=== PATIENT | female | born 1990 | race Two or more races ===

== ENCOUNTER 2021-07-21 12:32 | Emergency (ER) | payer MEDICAID, OTHER ==
[~2021-07-21] VITALS: Ht 162.6 cm; Wt 99.8 kg
[2021-07-21 13:43] VITALS: BP 137/89
[2021-07-21] MEDS ORDERED: ACETAMINOPHEN 500 MG TAB PO ONE (14:00)
[2021-07-21] MEDS ORDERED: AZIT500T66 PO (14:34)
[2021-07-21] MEDS ORDERED: IBUP800T27 PO (14:34)
== END 2021-07-21 15:21 | disposition home or self-care (01) ==
LOC: ER 12:32
DX: U07.1 COVID-19 (principal); R50.9 Fever, unspecified; M79.10 Myalgia, unspecified site
CPT/HCPCS: 71046

== ENCOUNTER 2023-07-16 21:05 | Emergency (ER) | payer MEDICAID ==
[~2023-07-16] VITALS: Ht 162.6 cm; Wt 95.3 kg
[~2023-07-16 21:05] MED LIST: AZIT500T66 PO; IBUP-1456 PO
[2023-07-16 22:46] LABS: Basophils # (auto) 0.1 10 ^3/uL (0-0.2); Basophils % (auto) 0.7 % (0.0-2.0); Eosinophils # (auto) 0.1 10 ^3/uL (0-0.8); Eosinophils % (auto) 0.8 % (0.0-7.0); Hematocrit 43.6 % (36.0-46.0); Hemoglobin 14.5 g/dL (12.2-16.2); Lymphocytes % (auto) 19.3 % (10.0-50.0); Mean Corpuscular Hemoglobin 29.9 pg (28.0-32.0); Mean Corpuscular Hgb Conc. 33.2 g/dL (32.0-36.0); Mean Corpuscular Volume 90.1 fL (80.0-100.0); Monocytes # (auto) 0.4 10 ^3/uL (0-1.3); Neutrophils # (auto) 7.7 10 ^3/uL (1.6-8.6); Neutrophils % (auto) 75.2 % (37.0-80.0); Red Blood Cells 4.84 10^6/uL (4.0-5.20); White Blood Cell 10.2 10^3/uL (4.4-10.8)
[2023-07-16 23:07] LABS: Alanine Aminotransferase 20 U/L (7-40); Albumin 4.7 g/dL (3.2-4.8); Alkaline Phosphatase 77 U/L (46-116); Anion Gap 8 (5-15); Blood Urea Nitrogen 7 mg/dL (9-23); Calcium 9.1 mg/dL (8.7-10.4); Carbon Dioxide 23 mmol/L (20-30); Chloride 107 mmol/L (98-107); Glucose 121 mg/dL (74-106); Potassium 3.3 mmol/L (3.5-5.1); Sodium 138 mmol/L (136-145)
[2023-07-16 23:08] LABS: Aspartate Aminotransferase 15 U/L (13-40); Bilirubin, Total 0.4 mg/dL (0.2-1.0); Total Protein 7.5 g/dL (5.7-8.2)
[2023-07-16 23:43] LABS: Urine Bacteria FEW /hpf (None Seen); Urine Blood 1+ /uL (Negative); Urine Clarity Clear (Clear); Urine Color Colorless (Yellow); Urine Mucus FEW (None Seen); Urine Protein, UAD Negative (Negative); Urine Specific Gravity 1.019 (1.001-1.035); Urine Urobilinogen Normal (Negative); Urine WBC 1 /hpf (0 - 5)
[2023-07-16 23:59] VITALS: BP 117/72; PULSE 89; RESP 20; TEMP 98.3; O2SAT 95
== END 2023-07-16 23:59 | disposition home or self-care (01) ==
LOC: ER 21:05
DX: N93.8 Other specified abnormal uterine and vaginal bleeding (principal); R10.2 Pelvic and perineal pain; Z32.02 Encounter for pregnancy test, result negative
CPT/HCPCS: 36415; 80053; 81001; 84702; 85025

== ENCOUNTER 2025-05-21 07:36 | Inpatient (IN) | payer MEDICAID ==
[~2025-05-21] VITALS: Ht 162.6 cm; Wt 98.9 kg
--- NOTE | 2025-05-21 08:24 | ED.PDOC ---
History of Present Illness HPI Comments A 34 YEAR OLD FEMALE PRESENTS TO THE ED WITH COMPLAINT OF FLU-LIKE SYMPTOMS. PATIENT REPORTS THAT SHE HAS BEEN EXPERIENCING DIZZINESS WITH ASSOCIATED DEHYDRATION, NAUSEA, VOMITING, FATIGUE, AND UTI SYMPTOMS FOR THE PAST MONTH. PER PT, SHE POSSIBLE DM. PATIENT DENIES FEVER, CHILLS, SHORTNESS OF BREATH, CHEST PAIN, ABDOMINAL PAIN, COUGH, SORE THROAT, HEADACHE, OR OTHER COMPLAINTS. NO OTHER SYMPTOMS OR MODIFYING FACTORS AT THIS TIME. PATIENT IS ALERT, ORIENTED X 4, AND HAS STEADY GAIT. Chief Complaint: Flu like Time Seen by MD: 08:23 Primary Care Provider: LIBAN Reviewed Notes: Nurses Notes, Medications, Allergies Allergies: Coded Allergies: NO KNOWN ALLERGIES (Unverified , 07/21/21) Home Meds Active Scripts Ibuprofen (Ibuprofen) 800 Mg Tab, 800 MG PO Q8HP PRN for 8 Days, #24 TAB Prov:LIANNA OSORIO 07/21/21 Azithromycin (Azithromycin) 500 Mg Tab, 500 MG PO DAILY for 5 Days, #5 TAB Prov:LIANNA OSORIO 07/21/21 Information Source: Patient Mode of Arrival: Ambulatory Severity: Moderate Timing: Months Duration: Since onset Prehospital treatment: None Medication Refill: For: Other (NAUSEA, VOMITING, FATIGUE AND UTI SYMPTOMS ) Past Medical History PAST MEDICAL HISTORY: Denies Surgical History: Denies all surgeries PHARMACY CASHIER History: Ovarian Cysts Family History Family History: Reviewed,noncontributory to illness Social History Smoker: Non-Smoker Alcohol: Denies ETOH Use Drugs: Denies Drug Use Lives In: Home Constitutional: reports: fatigue, others (ANXIOUS ); denies: chills, diaphoresis, fever, malaise, sweats, weakness EENTM: denies: blurred vision, double vision, ear bleeding, ear discharge, ear drainage, ear pain, ear ringing, eye pain, eye redness, hearing loss, mouth pain, mouth swelling, nasal discharge, nose bleeding, nose congestion, nose pain, photophobia, tearing, throat pain, throat swelling, voice changes, others Respiratory: denies: cough, hemoptysis, orthopnea, SOB at rest, shortness of breath, SOB with excertion, stridor, wheezing, others Cardiovascular: reports: others (TACHYCARDIA); denies: chest pain, dizzy spells, diaphoresis, Dyspnea on exertion, edema, irregular heart beat, left arm pain, lightheadedness, palpitations, PND, syncope Gastrointestinal: reports: nausea, vomiting; denies: abdomen distended, abdominal pain, blood streaked bowels, constipated, diarrhea, dysphagia, difficulty swallowing, hematemesis, melena, poor appetite, poor fluid intake, rectal bleeding, rectal pain, others Genitourinary: reports: frequency, urgency; denies: abnormal vagina bleeding, burning, dyspareunia, dysuria, flank pain, hematuria, incontinence, pain, , vagina discharge, others Neurological: reports: dizziness; denies: fainting, headache, left sided numbness, left sided weakness, numbness, paresthesia, pre-existing deficit, right sided numbness, right sided weakness, seizure, speech problems, tingling, tremors, weakness, others Musculoskeletal: denies: back pain, gout, joint pain, joint swelling, muscle pain, muscle stiffness, neck pain, others Integumetry: denies: bruises, change in color, change in hair/nails, dryness, laceration, lesions, lumps, rash, wounds, others Allergic/Immunocompromised: denies: Difficulty Healing, Frequent Infections, Hives, Itching, others Hematologic/Lymphatic: denies: anemia, blood clots, easy bleeding, easy bruising, swollen glands, others Endocrine: reports: excessive thirst; denies: excessive hunger, excessive sweating, excessive urination, flushing, intolerance to cold, intolerance to heat, unexplained weight gain, unexplained weight loss, others Psychiatric: denies: anxiety, bipolar disorder, depression, hopeless, panic disorder, schizophrenia, sleepless, suicidal, others All Other Systems: Reviewed and Negative Physical Exam General Appearance: No Apparent Distress, Normal, Other (ANXIOUS ) HEENT: Normal ENT Inspection, PERRL/EOMI, Pharynx Normal, TMs Normal Neck: Full Range of Motion, Non-Tender, Normal, Normal Inspection Respiratory: Chest Non-Tender, Lungs Clear, No Accessory Muscle Use, No Respiratory Distress, Normal Breath Sounds Cardiovascular: No Edema, No JVD, No Murmur, No Gallop, Normal Peripheral Pulses, Regular Rate/Rhythm Breast Exam: Deferred Gastrointestinal: No Organomegaly, Non Tender, No Pulsatile Mass, Normal Bowel Sounds, Soft Genitalia: Deferred Pelvic: Deferred Rectal: Deferred Extremities: No calf tenderness, Normal capillary refill, Normal inspection, Normal range of motion, Non-tender, No pedal edema Musculoskeletal : Apperance: Normal Neurologic: Alert, tool designer II-XII nml as Tested, No Motor Deficits, Normal Affect, Normal Mood, No Sensory Deficits Cerebellar Function: Normal Reflexes: Normal Skin: Dry, Normal Color, Warm Peripheral Pulses: 2+ carotid (R), 2+ carotid (L) Lymphatic: No Adenopathy Was a procedure done? Was a procedure done?: No Differential Dx Considerations may include: NEW ONSET DM. METABOLIC ACIDOSIS, HYPOGLYCEMIA, DEHYDRATION X-Ray, Labs, Meds, VS Vital Signs Date Time Temp Pulse Resp B/P (MAP) Pulse Ox O2 Delivery O2 Flow Rate FiO2 05/21/25 13:45 98.9 91 18 132/93 (106) 100 98.9 05/21/25 07:37 97.0 100 18 132/100 100 97.0 Lab Test 05/21/25 08:45 05/21/25 08:23 Range/Units White Blood Count 5.4 4.4-10.8 10^3/uL Red Blood Count 5.00 4.0-5.20 10^6/uL Hemoglobin 15.4 12.2-16.2 g/dL Hematocrit 44.6 36.0-46.0 % Mean Corpuscular Volume 89.3 80.0-100.0 fL Mean Corpuscular Hemoglobin 30.8 28.0-32.0 pg Mean Corpuscular Hemoglobin Concent 34.5 32.0-36.0 g/dL Red Cell Distribution Width 13.5 11.8-14.3 % Platelet Count 279 140-450 10^3/uL Mean Platelet Volume 9.9 6.9-10.8 fL Neutrophils (%) (Auto) 69.0 37.0-80.0 % Lymphocytes (%) (Auto) 22.2 10.0-50.0 % Monocytes (%) (Auto) 4.5 0.0-12.0 % Eosinophils (%) (Auto) 3.4 0.0-7.0 % Basophils (%) (Auto) 0.9 0.0-2.0 % Neutrophils # (Auto) 3.7 1.6-8.6 10 ^3/uL Lymphocytes # (Auto) 1.2 0.4-5.4 10 ^3/uL Monocytes # (Auto) 0.2 0-1.3 10 ^3/uL Eosinophils # (Auto) 0.2 0-0.8 10 ^3/uL Basophils # (Auto) 0.1 0-0.2 10 ^3/uL Nucleated Red Blood Cells 0.2 % Sodium Level 136 136-145 mmol/L Potassium Level 4.1 3.5-5.1 mmol/L Chloride Level 108 H 98-107 mmol/L Carbon Dioxide Level 13 L 20-31 mmol/L Anion Gap 15 5-15 Blood Urea Nitrogen < 5 L 9-23 mg/dL Creatinine 0.97 0.550-1.02 mg/dL Glomerular Filtration Rate Calc 79 >90 mL/min BUN/Creatinine Ratio 5.2 L 10.0-20.0 Serum Glucose 295 H 74-106 mg/dL Hemoglobin A1c 9.6 H <5.7 % A1C Calcium Level 8.5 L 8.7-10.4 mg/dL Beta-Hydroxybutyric Acid > 4.500 H < 0.4 mmol/L Urine Color Light-yellow Yellow Urine Clarity Clear Clear Urine pH 5.5 5.0-9.0 Urine Specific [place] 1.032 1.001-1.035 Urine Protein 1+ H Negative Urine Ketones 4+ H Negative Urine Blood Negative Negative /uL Urine Nitrite Negative Negative Urine Bilirubin Negative Negative Urine Urobilinogen Normal Negative mg/dL Urine Leukocyte Esterase Negative Negative /uL Urine RBC 4 0 - 4 /hpf Urine Microscopic WBC 2 0-5 /HPF Urine Squamous Epithelial Cells Few <5 /hpf Urine Bacteria Few H None Seen /hpf Urine Hyaline Casts Many 0 - 2 /lpf Urine Mucus Few None Seen Urine Glucose 4+ H Normal mg/dL Urine Test Negative Negative Current Medications Medications (Trade) Dose Ordered Sig/Karoline Route Start Time Stop Time Status Last Admin Sodium Chloride 1,000 ml @ 1,000 mls/hr Q1H ONCE IV 05/21/25 10:00 05/21/25 10:59 DC 05/21/25 10:12 Sodium Chloride 1,000 ml @ 1,000 mls/hr Q1H ONCE IV 05/21/25 10:45 05/21/25 11:44 DC 05/21/25 10:[address] [address] Ph: [phone] DIAGNOSTIC IMAGING Diagnostic Imaging Report : [id number] Signed PATIENT: SAMARIA DAY ACCT: [id number] UNIT: [id number] : 1990 LOC: ER ROOM / BED: / AGE / SEX: 34 / F ADM STATUS: REG ER SERVICE [id number] ORDERING PHYSICIAN: LIANNA OSORIO PROCEDURE(s): CXR1 - CHEST XRAY 1 VIEW REASON: COUGH ORDER NUMBER(s): [id number], ACCESSION NUMBER(s): [id number] EXAM: XY CHEST XRAY 1 VIEW Indication: COUGH Technique: Single frontal view of the chest was obtained Comparison: CHEST TWO VIEWS ROUTINE on DOS: 07/21/21 FINDINGS: Lines and Tubes: None Lungs: No focal consolidation. Pleura: No effusion. No pneumothorax. Cardiomediastinal contours: Unremarkable Bones: No acute osseous abnormality. IMPRESSION: No acute cardiopulmonary disease. ATED BY: ALIVIA BELTRAN MD DICTATED DATE/TIME: 05/21/25831 SIGNED BY: ALIVIA BELTRAN MD SIGNED DATE/TIME: 05/21/25831 CC: X-Ray, Labs, Meds, VS Comment EXTERNAL MEDICAL RECORDS REVIEWED: [NONE] INDEPENDENT HISTORIANS: [NONE] SOCIAL DETERMINANTS OF HEALTH: [NONE] LABS ORDERED: CBC, BMP, UA, PREG URINE REVIEWED AND INTERPRETED RESULTS: CHEST XR IMAGING ORDERED: CHEST XR TREATMENTS ORDERED: 0.9 NS 2 L IV PROCEDURES PERFORMED: NONE CRITICAL CARE TIME: NONE PATIENT PRESENTED WITH EXCESSIVE THIRST, GENERALIZED WEAKNESS, NAUSEA, VOMITING, AND FATIGUE. PATIENT WAS FOUND TO HAVE LOW CO2, HIGH BLOOD GLUCOSE LEVELS, AND DEHYDRATION, ALL INDICATIVE OF [place] DIABETES AND METABOLIC ACIDOSIS. SHAWN HERNANDEZ TO BE ADMITTED TO THE HOSPITAL FOR FURTHER IN-PATIENT EVALUATION AND TREATMENT. I HAVE DISCUSSED THE PATIENT WITH THE ATTENDING PHYSICIAN, DR. ORTIZ, HE AGREES WITH THE PATIENT'S PLAN OF CARE AND DISPOSITION. Images Reviewed?: Images reviewed and evaluated by me Time of 1ST Reevaluation: 08:45 Reevaluation 1ST: Unchanged Time of 2ND Reevaluation: 10:00 Reevaluation 2ND: Unchanged Patient Education/Counseling: Diagnosis, Treatment Family Education/Counseling: Diagnosis, Treatment, No Family Present SEPSIS Sepsis Screen Date sepsis recognized/suspect: May 21, 2025 Time Sepsis recognized/suspect: 07 Recent Procedure: No On Antibiotic Therapy: No Respiratory Rate >20: No Heart Rate >90: No Temp<36 C (96.8 F) or >38.3 C: No SBP <90 or MAP <65 mmHG: No New Acute Mental Status Change: No Is the patient on CPAP, BIPAP,: No Physician Orders Chest Xray 1 View (05/21/25 07:43) Heplock Iv (05/21/25 ) Accucheck (05/21/25 11:29) Vital Signs Date Time Temp Pulse Resp B/P (MAP) Pulse Ox O2 Delivery O2 Flow Rate FiO2 05/21/25 13:45 98.9 91 18 132/93 (106) 100 98.9 05/21/25 07:37 97.0 100 18 132/100 100 97.0 Laboratory Tests Test 05/21/25 08:45 White Blood Count 5.4 10^3/uL (4.4-10.8) Departure 1 Departure Time of Disposition: 10:32 Impression: Primary Impression: Diabetes mellitus, new onset Additional Impression: Metabolic acidosis Disposition: ADMITTED INPATIENT Condition: Serious Critical Care Note Critical Care Time?: No Stability Stability form required: Yes Unstable for transfer: Requires medication, ED Physician Assesment, Possible rapid decline Heart Score Heart Score: Heart Score Response (Comments) Value History N/A 0 EKG N/A 0 Age N/A 0 Risk Factors N/A 0 Troponin N/A 0 Total 0 I personally scribed for LIANNA OSORIO ([email or web address]) on 05/21/25 at 08:24. Electronically submitted by Deshawn Vega ([email or web address]). I personally scribed for LIANNA OSORIO PA ([email or web address]) on 05/21/25 at 08:29. Electronically submitted by Deshawn Vega ([email or web address]). I personally scribed for LIANNA OSORIO PA ([email or web address]) on 05/21/25 at 08:44. Electronically submitted by Deshawn Vega ([email or web address]). I personally scribed for LIANNA OSORIO PA ([email or web address]) on 05/21/25 at 08:57. Electronically submitted by Deshawn Vega ([email or web address]). I personally scribed for LIANNA OSORIO ([email or web address]) on 05/21/25 at 10:32. Electronically submitted by Deshawn Vega ([email or web address]). I personally scribed for LIANNA OSORIO ([email or web address]) on 05/21/25 at 10:33. Electronically submitted by Deshawn Vega ([email or web address]). I personally scribed for LIANNA OSORIO ([email or web address]) on 05/21/25 at 12:15. Electronically submitted by Deshawn Vega ([email or web address]). LIANNA OSORIO May 21, 2025 08:24
--- NOTE | 2025-05-21 08:35 | DVH ---
EXAM: XY CHEST XRAY 1 VIEW Indication: COUGH Technique: Single frontal view of the chest was obtained Comparison: CHEST TWO VIEWS ROUTINE on DOS: 07/21/21 FINDINGS: Lines and Tubes: None Lungs: No focal consolidation. Pleura: No effusion. No pneumothorax. Cardiomediastinal contours: Unremarkable Bones: No acute osseous abnormality. IMPRESSION: No acute cardiopulmonary disease.
[2025-05-21 09:08] LABS: Hematocrit 44.6 % (36.0-46.0); Hemoglobin 15.4 g/dL (12.2-16.2); Mean Corpuscular Hemoglobin 30.8 pg (28.0-32.0); Mean Corpuscular Volume 89.3 fL (80.0-100.0); Nucleated Red Blood Cells % 0.2 %
[2025-05-21 09:17] LABS: Potassium 4.1 mmol/L (3.5-5.1); Sodium 136 mmol/L (136-145)
[2025-05-21 09:18] LABS: Anion Gap 15 (5-15)
[2025-05-21 09:20] LABS: Urine Protein, UAD 1+ (Negative)
[2025-05-21 09:32] LABS: BUN/Creatinine Ratio 5.2 (10.0-20.0); Blood Urea Nitrogen < 5 mg/dL (9-23); Calcium 8.5 mg/dL (8.7-10.4); Carbon Dioxide 13 mmol/L (20-31); Chloride 108 mmol/L (98-107); Glucose 295 mg/dL (74-106)
[2025-05-21] MEDS: SODIUM CHLORIDE 0.9% 1,000 ML IV ONE ×2 (10:12→10:45)
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
[2025-05-21] MEDS ORDERED: ACETAMINOPHEN 325 MG TAB PO PRN (16:00)
[2025-05-21] MEDS ORDERED: DEXTROSE (50%) 50ML SYRG IV PRN (16:00)
[2025-05-21] MEDS ORDERED: ONDANSETRON HCL 4 MG/2 ML VIAL IV PRN (16:00)
[2025-05-21] MEDS: ACCU-CHEK COMFORT CURVE STRIP VI SCH (17:00)
[2025-05-21 17:25] LABS: COVID19 ANTIGEN SOFIA FIA NEGATIVE (NEGATIVE)
[2025-05-21] MEDS: InsuLIN REG 1unit/0.01ml Soln (100units/ml) SC SCH (18:42)
[2025-05-21] MEDS: SODIUM CHLORIDE 0.9% 1,000 ML IV SCH (18:45)
--- NOTE | 2025-05-21 19:15 | DVH ---
CT HEAD WITHOUT CONTRAST INDICATION: dizziness COMPARISON: None TECHNIQUE: CT of the head without intravenous contrast. RADIATION DOSE: CTDIvol: 53.49 mGy, DLP: 966.18 mGy*cm FINDINGS: There is no evidence of acute intracranial hemorrhage, extra-axial collection, mass effect, midline s hift, herniation or hydrocephalus. The ventricles, sulci and cisterns are age appropriate. The [place] -white differentiation is intact. The visualized paranasal sinuses and mastoid air cells are clear. The surrounding soft tissues and osseous structures are unremarkable. IMPRESSION: 1. No evidence of acute intracranial hemorrhage, mass effect or hydrocephalus.
[2025-05-21 20:00] VITALS: RESP 18; O2SAT 99
[2025-05-21 21:00] VITALS: BP 128/84; PULSE 77; RESP 19; TEMP 98.3; O2SAT 99
[2025-05-21] MEDS: MELATONIN 5 MG TAB PO ONE (23:30)
[2025-05-22] VITALS (7 sets, daily range): BP systolic 107–116; BP diastolic 76–88; PULSE 85–92; RESP 16–18; TEMP 97.7–98.9; O2SAT 98–100
[2025-05-22 06:24] LABS: Hematocrit 41.1 % (36.0-46.0); Hemoglobin 14.3 g/dL (12.2-16.2); Mean Corpuscular Hemoglobin 30.9 pg (28.0-32.0); Mean Corpuscular Volume 89.1 fL (80.0-100.0); Nucleated Red Blood Cells % 0.2 %
[2025-05-22 06:46] LABS: Alanine Aminotransferase 14 U/L (7-40); Alkaline Phosphatase 94 U/L (46-116)
[2025-05-22 06:47] LABS: Albumin 3.8 g/dL (3.2-4.8); Anion Gap 14 (5-15); Potassium 3.7 mmol/L (3.5-5.1); Sodium 138 mmol/L (136-145); Total Protein 6.6 g/dL (5.7-8.2)
[2025-05-22 06:49] LABS: BUN/Creatinine Ratio 7.1 (10.0-20.0); Bilirubin, Total 0.2 mg/dL (0.2-1.0); Blood Urea Nitrogen < 5 mg/dL (9-23); Calcium 8.0 mg/dL (8.7-10.4); Carbon Dioxide 12 mmol/L (20-31); Chloride 112 mmol/L (98-107); Glucose 194 mg/dL (74-106)
[2025-05-22] MEDS ORDERED: MELATONIN 5 MG TAB PO ONE (22:00)
[2025-05-23] VITALS (7 sets, daily range): BP systolic 112–120; BP diastolic 73–85; PULSE 84–90; RESP 16–18; TEMP 97.8–98.7; O2SAT 97–99
--- NOTE | 2025-05-23 12:09 | DVHPN2 ---
Subjective The patient seen and examined at bedside. The patient complains of tired. Reviewed: Care Plan, H&P, Labs, Medications, Previous Orders, Radiology Changes from previous H/P or p: No Changes Gastrointestinal: Nausea, Vomiting Objective Vitals Vital Signs Date Time Temp Pulse Resp B/P (MAP) Pulse Ox O2 Delivery O2 Flow Rate FiO2 05/23/25 08:45 98.3 86 17 112/75 (87) 98 98.3 05/22/25 20:00 Room Air* 0 21 Intake/Output Intake and Output 05/23/25 07:00 Intake Total 2250 ml Balance 2250 ml Intake Oral 1710 ml IV Total 540 ml # Voids 7 # Bowel Movements 2 General Appearance: Alert, Oriented X3, Cooperative, No acute distress HEENT: Atraumatic, PERRLA, EOMI, Mucous membr. moist/pink Neck: Supple Lungs: Clear to auscultation, Normal air movement Cardiovascular: Regular rate, Normal S1, Normal S2, No murmurs, Gallops, Rubs Abdomen: Normal bowel sounds, Soft, No tenderness Neuro: Cranial nerves 3-12 NL Medications Current Medications Medications Dose Ordered Sig/Karoline Route Start Time Stop Time Status Last Admin Dose Admin Diagnostic Test (Pha) 1 strip ACHS 05/21/25 17:00 05/23/25 11:38 1 STRIP Insulin Human Regular ACHS SC 05/21/25 17:00 05/23/25 11:38 8 UNITS Dextrose 50 ml UD PRN IV 05/21/25 16:00 Ondansetron HCl 4 mg Q4HP PRN IV 05/21/25 16:00 Acetaminophen 650 mg Q6HP PRN PO 05/21/25 16:00 Sodium Chloride 1,000 ml @ 60 mls/hr [id number] IV 05/21/25 17:15 05/22/25 09:55 60 MLS/HR Laboratory Results Laboratory Tests 05/22/25 04:28 Urinalysis Test 05/21/25 08:23 Urine Color Light-yellow (Yellow) Urine Clarity Clear (Clear) Urine pH 5.5 (5.0-9.0) Urine Specific Meherrin 1.032 (1.001-1.035) Urine Protein 1+ (Negative) H Urine Ketones 4+ (Negative) H Urine Blood Negative /uL (Negative) Urine Nitrite Negative (Negative) Urine Bilirubin Negative (Negative) Urine Urobilinogen Normal mg/dL (Negative) Urine Leukocyte Esterase Negative /uL (Negative) Urine RBC 4 /hpf (0 - 4) Urine Microscopic WBC 2 /HPF (0-5) Urine Squamous Epithelial Cells Few /hpf (<5) Urine Bacteria Few /hpf (None Seen) H Urine Hyaline Casts Many /lpf (0 - 2) Urine Mucus Few (None Seen) Urine Glucose 4+ mg/dL (Normal) H Urine Test Negative (Negative) Labs and/or images reviewed: Labs reviewed by me Assessment/Plan Assessment/Plan Diabetes, new onset History of ovarian cysts Obesity Continue current management Continue with SSI and lantus Advise to excercise and lose weight. Plan discussed with: Patient Date of Service: May 22, 2025 Billing Provider: SILVESTRE CAUSEY MD Common Visit Codes: [id number] INP/OBS CARE(HIGH) SILVESTRE CAUSEY MD May 23, 2025 12:09
--- NOTE | 2025-05-23 12:18 | DVHPN2 ---
Subjective The patient seen and examined at bedside. The patient complains of tired. Reviewed: Care Plan, H&P, Labs, Medications, Previous Orders, Radiology Changes from previous H/P or p: No Changes Gastrointestinal: Nausea, Vomiting Objective Vitals Vital Signs Date Time Temp Pulse Resp B/P (MAP) Pulse Ox O2 Delivery O2 Flow Rate FiO2 05/23/25 08:45 98.3 86 17 112/75 (87) 98 98.3 05/22/25 20:00 Room Air* 0 21 Intake/Output Intake and Output 05/23/25 07:00 Intake Total 2250 ml Balance 2250 ml Intake Oral 1710 ml IV Total 540 ml # Voids 7 # Bowel Movements 2 General Appearance: Alert, Oriented X3, Cooperative, No acute distress HEENT: Atraumatic, PERRLA, EOMI, Mucous membr. moist/pink Neck: Supple Lungs: Clear to auscultation, Normal air movement Cardiovascular: Regular rate, Normal S1, Normal S2, No murmurs, Gallops, Rubs Abdomen: Normal bowel sounds, Soft, No tenderness Neuro: Cranial nerves 3-12 NL Medications Current Medications Medications Dose Ordered Sig/Karoline Route Start Time Stop Time Status Last Admin Dose Admin Diagnostic Test (Pha) 1 strip ACHS 05/21/25 17:00 05/23/25 11:38 1 STRIP Insulin Human Regular ACHS SC 05/21/25 17:00 05/23/25 11:38 8 UNITS Dextrose 50 ml UD PRN IV 05/21/25 16:00 Ondansetron HCl 4 mg Q4HP PRN IV 05/21/25 16:00 Acetaminophen 650 mg Q6HP PRN PO 05/21/25 16:00 Sodium Chloride 1,000 ml @ 60 mls/hr [id number] IV 05/21/25 17:15 05/22/25 09:55 60 MLS/HR Laboratory Results Laboratory Tests 05/22/25 04:28 Urinalysis Test 05/21/25 08:23 Urine Color Light-yellow (Yellow) Urine Clarity Clear (Clear) Urine pH 5.5 (5.0-9.0) Urine Specific [place] 1.032 (1.001-1.035) Urine Protein 1+ (Negative) H Urine Ketones 4+ (Negative) H Urine Blood Negative /uL (Negative) Urine Nitrite Negative (Negative) Urine Bilirubin Negative (Negative) Urine Urobilinogen Normal mg/dL (Negative) Urine Leukocyte Esterase Negative /uL (Negative) Urine RBC 4 /hpf (0 - 4) Urine Microscopic WBC 2 /HPF (0-5) Urine Squamous Epithelial Cells Few /hpf (<5) Urine Bacteria Few /hpf (None Seen) H Urine Hyaline Casts Many /lpf (0 - 2) Urine Mucus Few (None Seen) Urine Glucose 4+ mg/dL (Normal) H Urine Test Negative (Negative) Labs and/or images reviewed: Labs reviewed by me Assessment/Plan Assessment/Plan Diabetes, new onset History of ovarian cysts Obesity Continue current management Continue with SSI and lantus BG still above 300s. Will add metformin 500mg bid. will add glipizide 5mg qam Advise to excercise and lose weight. Plan discussed with: Patient Date of Service: May 23, 2025 Billing Provider: SILVESTRE CAUSEY MD Common Visit Codes: [id number] INP/OBS CARE(HIGH) SILVESTRE CAUSEY MD May 23, 2025 12:18
[2025-05-24] VITALS (8 sets, daily range): BP systolic 111–123; BP diastolic 74–90; PULSE 78–97; RESP 16–20; TEMP 97.8–98.5; O2SAT 97–98
[2025-05-24] MEDS: glipiZIDE 5 MG TAB PO SCH (06:21)
--- NOTE | 2025-05-24 15:02 | DVHPN2 ---
Subjective The patient seen and examined at bedside. The patient complains of tired. The patient refuse glipirize and also regular insulin. Reviewed: Care Plan, H&P, Labs, Medications, Previous Orders, Radiology Changes from previous H/P or p: No Changes Gastrointestinal: Nausea, Vomiting Objective Vitals Vital Signs Date Time Temp Pulse Resp B/P (MAP) Pulse Ox O2 Delivery O2 Flow Rate FiO2 05/24/25 13:00 98.0 89 16 113/77 (89) 98 98.0 05/24/25 08:00 Room Air* 0 21 Intake/Output Intake and Output 05/24/25 07:00 Intake Total 3350 ml Balance 3350 ml Intake Oral 3350 ml # Voids 6 General Appearance: Alert, Oriented X3, Cooperative, No acute distress HEENT: Atraumatic, PERRLA, EOMI, Mucous membr. moist/pink Neck: Supple Lungs: Clear to auscultation, Normal air movement Cardiovascular: Regular rate, Normal S1, Normal S2, No murmurs, Gallops, Rubs Abdomen: Normal bowel sounds, Soft, No tenderness Neuro: Cranial nerves 3-12 NL Medications Current Medications Medications Dose Ordered Sig/Karoline Route Start Time Stop Time Status Last Admin Dose Admin Diagnostic Test (Pha) 1 strip ACHS 05/21/25 17:00 05/24/25 11:32 1 STRIP Insulin Human Regular ACHS SC 05/21/25 17:00 05/24/25 06:22 4 UNITS Dextrose 50 ml UD PRN IV 05/21/25 16:00 Ondansetron HCl 4 mg Q4HP PRN IV 05/21/25 16:00 Acetaminophen 650 mg Q6HP PRN PO 05/21/25 16:00 Sodium Chloride 1,000 ml @ 60 mls/hr [id number] IV 05/21/25 17:15 05/24/25 11:37 60 MLS/HR Metformin HCl 500 mg BIDWM PO 05/23/25 18:00 05/24/25 11:36 500 MG Glipizide 5 mg QAM PO 05/24/25 07:00 Laboratory Results Laboratory Tests 05/22/25 04:28 Urinalysis Test 05/21/25 08:23 Urine Color Light-yellow (Yellow) Urine Clarity Clear (Clear) Urine pH 5.5 (5.0-9.0) Urine Specific [place] 1.032 (1.001-1.035) Urine Protein 1+ (Negative) H Urine Ketones 4+ (Negative) H Urine Blood Negative /uL (Negative) Urine Nitrite Negative (Negative) Urine Bilirubin Negative (Negative) Urine Urobilinogen Normal mg/dL (Negative) Urine Leukocyte Esterase Negative /uL (Negative) Urine RBC 4 /hpf (0 - 4) Urine Microscopic WBC 2 /HPF (0-5) Urine Squamous Epithelial Cells Few /hpf (<5) Urine Bacteria Few /hpf (None Seen) H Urine Hyaline Casts Many /lpf (0 - 2) Urine Mucus Few (None Seen) Urine Glucose 4+ mg/dL (Normal) H Urine Test Negative (Negative) Labs and/or images reviewed: Labs reviewed by me Assessment/Plan Assessment/Plan Diabetes, new onset History of ovarian cysts Obesity Continue current management Continue with SSI and lantus BG still above 300s. Continuemetformin 500mg bid. Advise to take glipizide 5mg qam Advise to excercise and lose weight. Explained to patient that I need to get her blood glucose down, ideally less than 200, she still at 230-250 level I told her if she refuse treatment , I cannot treat her. Plan discussed with: Patient, Other (mother) My Orders Orders - SILVESTRE CAUSEY MD Procedure Category Date Status Time Glipizide Tablet PHA 05/24/25 In Process (Glucotrol Tablet) 07:00 Date of Service: May 24, 2025 Billing Provider: SILVESTRE CAUSEY MD Common Visit Codes: [id number] INP/OBS CARE(HIGH) SILVESTRE CAUSEY MD May 24, 2025 15:02
[2025-05-24] MEDS: DOCUSATE SOD 100 MG CAP PO PRN (16:15)
[2025-05-25 01:00] VITALS: BP 102/63; PULSE 77; RESP 19; TEMP 97.6; O2SAT 97
[2025-05-25 04:56] VITALS: BP 105/72; PULSE 76; RESP 19; TEMP 97.2; O2SAT 98
[2025-05-25 08:45] VITALS: BP 106/77; PULSE 78; RESP 14; TEMP 98.3; O2SAT 98
[2025-05-25 12:35] VITALS: BP 117/89; PULSE 73; RESP 18; TEMP 98.3; O2SAT 97
--- NOTE | 2025-05-25 13:32 | DVHPN2 ---
Subjective The patient seen and examined at bedside. The patient complains of tired. The patient continue to refuse glipirize and also regular insulin. However state that she want her blood glucose better.?? Reviewed: Care Plan, H&P, Labs, Medications, Previous Orders, Radiology Changes from previous H/P or p: No Changes Gastrointestinal: Nausea, Vomiting Objective Vitals Vital Signs Date Time Temp Pulse Resp B/P (MAP) Pulse Ox O2 Delivery O2 Flow Rate FiO2 05/25/25 12:35 98.3 73 18 117/89 (98) 97 98.3 05/25/25 08:00 Room Air* 0 21 Intake/Output Intake and Output 05/25/25 07:00 Intake Total 1300 ml Balance 1300 ml Intake Oral 1300 ml # Voids 3 General Appearance: Alert, Oriented X3, Cooperative, No acute distress HEENT: Atraumatic, PERRLA, EOMI, Mucous membr. moist/pink Neck: Supple Lungs: Clear to auscultation, Normal air movement Cardiovascular: Regular rate, Normal S1, Normal S2, No murmurs, Gallops, Rubs Abdomen: Normal bowel sounds, Soft, No tenderness Neuro: Cranial nerves 3-12 NL Medications Current Medications Medications Dose Ordered Sig/Karoline Route Start Time Stop Time Status Last Admin Dose Admin Diagnostic Test (Pha) 1 strip ACHS 05/21/25 17:00 05/25/25 11:30 1 STRIP Insulin Human Regular ACHS SC 05/21/25 17:00 05/25/25 12:45 6 UNITS Dextrose 50 ml UD PRN IV 05/21/25 16:00 Ondansetron HCl 4 mg Q4HP PRN IV 05/21/25 16:00 Acetaminophen 650 mg Q6HP PRN PO 05/21/25 16:00 Sodium Chloride 1,000 ml @ 60 mls/hr [id number] IV 05/21/25 17:15 05/25/25 04:46 60 MLS/HR Metformin HCl 500 mg BIDWM PO 05/23/25 18:00 05/25/25 08:49 500 MG Glipizide 5 mg QAM PO 05/24/25 07:00 Docusate Sodium 100 mg BIDPRN PRN PO 05/24/25 15:30 05/25/25 09:25 100 MG Insulin Glargine 20 units HS SC 05/25/25 22:00 UNV Laboratory Results Laboratory Tests 05/22/25 04:28 Urinalysis Test 05/21/25 08:23 Urine Color Light-yellow (Yellow) Urine Clarity Clear (Clear) Urine pH 5.5 (5.0-9.0) Urine Specific [place] 1.032 (1.001-1.035) Urine Protein 1+ (Negative) H Urine Ketones 4+ (Negative) H Urine Blood Negative /uL (Negative) Urine Nitrite Negative (Negative) Urine Bilirubin Negative (Negative) Urine Urobilinogen Normal mg/dL (Negative) Urine Leukocyte Esterase Negative /uL (Negative) Urine RBC 4 /hpf (0 - 4) Urine Microscopic WBC 2 /HPF (0-5) Urine Squamous Epithelial Cells Few /hpf (<5) Urine Bacteria Few /hpf (None Seen) H Urine Hyaline Casts Many /lpf (0 - 2) Urine Mucus Few (None Seen) Urine Glucose 4+ mg/dL (Normal) H Urine Test Negative (Negative) Labs and/or images reviewed: Labs reviewed by me Assessment/Plan Assessment/Plan Diabetes, new onset History of ovarian cysts Obesity Medical noncompliance. Continue current management Continue with SSI and lantus BG still above 200 to 280 Continuemetformin 500mg bid. Advise to take glipizide 5mg qam Advise patient to compliance with treatment. If she is not taking medications for diabetes, I cannot bring the blood glucose down. Advise to excercise and lose weight. Explained to patient that I need to get her blood glucose down, ideally less than 200, she still at 230-280 level. If she continue to refuse meds, will dc home. Plan discussed with: Patient My Orders Orders - SILVESTRE CAUSEY MD Procedure Category Date Status Time Docusate Sodium PHA 05/24/25 In Process Capsule (Colace 15:30 Insulin Lantus PHA 05/25/25 Transmitted (Glargine) (Lantus) 22:00 Date of Service: May 25, 2025 Billing Provider: SILVESTRE CAUSEY MD Common Visit Codes: [id number] INP/OBS CARE(HIGH) SILVESTRE CAUSEY MD May 25, 2025 13:32
[2025-05-25] MEDS ORDERED: DEXTROSE (50%) 50ML SYRG IV PRN (13:45)
[2025-05-25] MEDS: LORazepam 0.5 MG TAB PO ONE (15:48)
[2025-05-25 16:31] VITALS: BP 125/92; PULSE 86; RESP 18; TEMP 98.3; O2SAT 99
[2025-05-25] MEDS: ACCU-CHEK COMFORT CURVE STRIP VI SCH (17:00)
[2025-05-25] MEDS: InsuLIN REG 1unit/0.01ml Soln (100units/ml) SC SCH ×2 (18:42→21:31)
[2025-05-25 21:00] VITALS: BP 118/84; PULSE 88; RESP 18; TEMP 79.9; O2SAT 98
[2025-05-25] MEDS: INSULIN LANTUS (GLARGINE) 1 /0.01ml (100units/ml) SC SCH (21:30)
[2025-05-26] VITALS (7 sets, daily range): BP systolic 99–114; BP diastolic 58–83; PULSE 73–93; RESP 16–20; TEMP 97.3–98.7; O2SAT 20–100
[2025-05-26 06:35] LABS: Hematocrit 36.6 % (36.0-46.0); Hemoglobin 12.9 g/dL (12.2-16.2); Mean Corpuscular Hemoglobin 30.2 pg (28.0-32.0); Mean Corpuscular Volume 85.9 fL (80.0-100.0); Nucleated Red Blood Cells % 0.1 %
[2025-05-26 06:50] LABS: Anion Gap 11 (5-15); Carbon Dioxide 23 mmol/L (20-31); Sodium 143 mmol/L (136-145)
[2025-05-26 06:55] LABS: Calcium 8.1 mg/dL (8.7-10.4); Chloride 109 mmol/L (98-107); Potassium 2.8 mmol/L (3.5-5.1)
[2025-05-26 06:56] LABS: BUN/Creatinine Ratio 10.3 (10.0-20.0)
[2025-05-26 06:58] LABS: Blood Urea Nitrogen 6 mg/dL (9-23); Glucose 170 mg/dL (74-106)
[2025-05-26] MEDS: SOD CHL 0.9%/ KCL 40MEQ 1,000 ML IV ONE (13:00)
--- NOTE | 2025-05-26 13:28 | DVHPN2 ---
Subjective Patient reports generalized weakness Reviewed: Care Plan, H&P, Labs, Medications, Previous Orders, Radiology Changes from previous H/P or p: No Changes General: Per HPI Gastrointestinal: Nausea, Vomiting Objective Vitals Vital Signs Date Time Temp Pulse Resp B/P (MAP) Pulse Ox O2 Delivery O2 Flow Rate FiO2 05/26/25 09:00 97.7 73 17 99/64 (76) 100 97.7 05/26/25 08:00 Room Air* 0 21 Intake/Output Intake and Output 05/26/25 07:00 Intake Total 1200 ml Balance 1200 ml Intake Oral 1200 ml # Voids 5 General Appearance: Alert, Oriented X3, Cooperative, No acute distress HEENT: Atraumatic, PERRLA, EOMI, Mucous membr. moist/pink Neck: Supple Lungs: Clear to auscultation, Normal air movement Cardiovascular: Regular rate, Normal S1, Normal S2, No murmurs, Gallops, Rubs Abdomen: Normal bowel sounds, Soft, No tenderness Neuro: Cranial nerves 3-12 NL Medications Current Medications Medications Dose Ordered Sig/Karoline Route Start Time Stop Time Status Last Admin Dose Admin Ondansetron HCl 4 mg Q4HP PRN IV 05/21/25 16:00 Acetaminophen 650 mg Q6HP PRN PO 05/21/25 16:00 Metformin HCl 500 mg BIDWM PO 05/23/25 18:00 05/26/25 08:28 500 MG Glipizide 5 mg QAM PO 05/24/25 07:00 05/26/25 06:19 5 MG Docusate Sodium 100 mg BIDPRN PRN PO 05/24/25 15:30 05/25/25 23:07 100 MG Insulin Glargine 20 units HS SC 05/25/25 22:00 05/25/25 21:30 20 UNITS Diagnostic Test (Pha) 1 strip ACHS 05/25/25 17:00 05/26/25 11:57 1 STRIP Insulin Human Regular HS SC 05/25/25 22:00 05/25/25 21:31 6 UNITS Insulin Human Regular AC SC 05/25/25 17:00 05/26/25 11:59 9 UNITS Dextrose 50 ml UD PRN IV 05/25/25 13:45 Laboratory Results Laboratory Tests 05/26/25 05:35 Chemistry Test 05/26/25 05:35 Calcium Level 8.1 mg/dL (8.7-10.4) L Urinalysis Test 05/21/25 08:23 Urine Color Light-yellow (Yellow) Urine Clarity Clear (Clear) Urine pH 5.5 (5.0-9.0) Urine Specific [place] 1.032 (1.001-1.035) Urine Protein 1+ (Negative) H Urine Ketones 4+ (Negative) H Urine Blood Negative /uL (Negative) Urine Nitrite Negative (Negative) Urine Bilirubin Negative (Negative) Urine Urobilinogen Normal mg/dL (Negative) Urine Leukocyte Esterase Negative /uL (Negative) Urine RBC 4 /hpf (0 - 4) Urine Microscopic WBC 2 /HPF (0-5) Urine Squamous Epithelial Cells Few /hpf (<5) Urine Bacteria Few /hpf (None Seen) H Urine Hyaline Casts Many /lpf (0 - 2) Urine Mucus Few (None Seen) Urine Glucose 4+ mg/dL (Normal) H Urine Test Negative (Negative) Labs and/or images reviewed: Labs reviewed by me Assessment/Plan Assessment/Plan Impression: -DKA -new onset diabetes mellitus -obesity -? Tooth abscess -hypokalemia -constipation Plan: -potassium replacement -IV hydration -no abscess appreciated when inspected oral cavity -diabetic education -continue glipizide, metformin, Lantus -repeat labs in a.m. -diabetic education, plans for discharge in a.m. Total time spent with patient discussing and formulating plan of care: 35 minutes. Total time spent with patient and family regarding advance care plannin minutes. This medical document was created using an electronic medical record system with [employer] dictation system. Although this document has been carefully reviewed, there may still be some phonetic and typographical errors. These areas are purely typographical due to imperfections of the software programs, and do not reflect any compromise in the patient's medical care. Plan discussed with: Patient, Other (RN) My Orders Orders - BLANCA SAUER NP Procedure Category Date Status Time Sod Chl 0.9%/ Kcl PHA 05/26/25 In Process 40meq 13:00 *Rn Supervisor Rolling Room REFER 05/26/25 Transmitted Referral 12:59 Communication Order ORDERS 05/26/25 Transmitted 12:59 Magnesium LAB 05/26/25 Logged 12:59 Date of Service: May 26, 2025 Billing Provider: BLANCA SAUER NP Common Visit Codes: [id number] INP/OBS CARE(HIGH) Secondary Visit Codes: [id number] CARE PLAN 30 MINUTES BLANCA SAUER NP May 26, 2025 13:28
[2025-05-26] MEDS: POTASSIUM EFFERVESENT TAB 25 MEQ PO ONE (13:50)
[2025-05-26] MEDS: LACTULOSE 20Gm/30ML SOLN PO ONE (14:03)
--- NOTE | 2025-05-26 14:32 | ECG ---
[facility] Test Date: 2025-05-25 Test Time: 14:58:01 Pat Name: SAMARIA DAY Department: Room: 0287 B Gender: F Bias Binding Cutter: NORM : 1990 Requested By: SILVESTRE CAUSEY Order Number: [id number] Reading MD: Andrzej Nelson Measurements Intervals [place] Rate: 89 P: 22 IA: 136 QRS: 13 QRSD: 86 T: -1 QT: 359 QTc: 437 Interpretive Statements Sinus rhythm Electronically Signed On 05-27-2025 13:08:09 PST by Andrzej Nelson Please click the below link to view image of tracing.
[2025-05-27 01:00] VITALS: BP 100/60; PULSE 78; RESP 19; TEMP 97.7; O2SAT 98
[2025-05-27 05:00] VITALS: BP 108/72; PULSE 65; RESP 19; TEMP 97.9; O2SAT 97
[2025-05-27 07:45] LABS: Anion Gap 10 (5-15); Calcium 8.0 mg/dL (8.7-10.4); Carbon Dioxide 24 mmol/L (20-31); Chloride 109 mmol/L (98-107); Potassium 3.0 mmol/L (3.5-5.1); Sodium 143 mmol/L (136-145)
[2025-05-27 07:51] LABS: BUN/Creatinine Ratio 8.9 (10.0-20.0); Blood Urea Nitrogen < 5 mg/dL (9-23); Glucose 142 mg/dL (74-106); Magnesium 1.9 mg/dL (1.6-2.6)
[2025-05-27 08:29] VITALS: BP 104/77; PULSE 73; RESP 17; TEMP 97.9; O2SAT 97
[2025-05-27] MEDS: POTASSIUM EFFERVESENT TAB 25 MEQ PO ONE (12:06)
[2025-05-27 12:37] VITALS: BP 114/76; PULSE 85; RESP 17; TEMP 97.9; O2SAT 98
[2025-05-27] MEDS ORDERED: GLIP5TAB21 PO (13:53)
[2025-05-27] MEDS ORDERED: INSU1INJ19 SC (13:53)
[2025-05-27] MEDS ORDERED: BLOO1KIT60 XX (13:53)
[2025-05-27] MEDS ORDERED: METF-370 PO (13:53)
[2025-05-27] MEDS ORDERED: LANC-347 XX (13:53)
[2025-05-27] MEDS ORDERED: POTA8TAB38 PO (13:53)
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
[2025-05-27 16:40] VITALS: BP 104/72; PULSE 84; RESP 18; TEMP 98.1; O2SAT 96
[2025-05-27 16:58] VITALS: BP 114/76; PULSE 80; RESP 17; TEMP 98; O2SAT 97
== END 2025-05-27 18:59 | disposition home or self-care (01) | DRG 420 ==
LOC: ER 07:36 → OVERFLOW 15:52 → WEST WING 18:00
PROVIDERS: ADMIT Nurse Practitioner Acute Care; ATTEND Nurse Practitioner Acute Care
DX: E11.10 Type 2 diabetes mellitus with ketoacidosis without coma (principal); E66.9 Obesity, unspecified; E86.0 Dehydration; Z20.822 Contact with and (suspected) exposure to COVID-19; E87.6 Hypokalemia; K59.00 Constipation, unspecified; Z82.49 Family history of ischemic heart disease and other diseases of the circulatory system; Z79.84 Long term (current) use of oral hypoglycemic drugs; Z91.199 Patient's noncompliance with other medical treatment and regimen due to unspecified reason; Z68.35 Body mass index [BMI] 35.0-35.9, adult
CPT/HCPCS: 36415; 70450; 71045; 80048; 80053; 81001; 81025; 82010; 82533; 82962; 83036; 83735; 85025; 87426; 87804; 93005; 96360; G0378; J1815